=== PATIENT | male | born 1965 | race African-American/Black ===

== ENCOUNTER 2017-10-12 11:06 | Inpatient (IN) | payer OTHER ==
[~2017-10-12] VITALS: Ht 195.6 cm; Wt 89.2 kg
[~2017-10-12 11:06] MED LIST: ATRIPLA TABLET1 EACH PO; LYRICA300 MG PO; PRINIVIL5 MG PO
[2017-10-12 12:24] LABS: HEMATOCRIT 38.9 % (38.0-50.0); MCH 30.9 PG (29.0-34.0); MCV 88.4 FL (86-99); MEAN PLAT.VOLUME 10.8 uM^3 (9.0-12.4); PLATELET COUNT 330 K/uL (156-360); RBC DIS.WIDTH-CV 11.8 % (11.8-14.6); RBC DIS.WIDTH-SD 38.3 % (39-53); WHITE BLOOD COUNT 6.4 K/uL (4.1-10.2)
[2017-10-12 12:46] LABS: ANION GAP 9 MEQ/L (2-14); CHLORIDE 103 MEQ/L (99-109); SAMPLE HEMOLYSIS CHECK 0; SAMPLE ICTERIC CHECK 0; SAMPLE LIPEMIA CHECK 0; SODIUM 139 MEQ/L (136-147)
[2017-10-12 12:52] LABS: GFR ESTIMATE (CALCULATED) > 59 mL/min/ (58.99-99999); GLUCOSE 112 mg/dL (70-99); UREA NITROGEN (BUN) 8 mg/dL (9-23)
[2017-10-12 12:53] LABS: TROP-I INTERPRETATION NEGATIVE; TROPONIN-I 0.09 ng/mL (0.0-0.30)
[2017-10-12 13:52] LABS: D-DIMER ELISA < 150.00 ng/mLDDU (<230)
[2017-10-12 16:31] LABS: HDL CHOLESTEROL 70 MG/DL (Desirable>=40); LDL CHOLESTEROL 78 mg/dL (Desirable<100); NON-HDL CHOLESTEROL 91 mg/dL (Desirable<160); TOTAL CHOLESTEROL 161 mg/dL (Desirable<200); TRIGLYCERIDES 67 MG/DL (Normal: <150)
[2017-10-12 16:56] VITALS: BP 173/85
[2017-10-12 20:15] VITALS: BP 156/96
[2017-10-12 22:30] VITALS: BP 102/67
[2017-10-12] MEDS ORDERED: CHILDREN'S ASPI81 M1 PO (23:22)
[2017-10-12] MEDS ORDERED: PERCOCET 5/31 TABLET PO (23:23)
[2017-10-12] MEDS ORDERED: ESTRADIOL2 MG PO (23:25)
[2017-10-12] MEDS ORDERED: LISINOPRIL20 MG PO (23:26)
[2017-10-12] MEDS ORDERED: DEXILANT60 MG PO (23:26)
[2017-10-12] MEDS ORDERED: ATRIPLA TABLET1 EACH PO (23:27)
[2017-10-13 01:00] VITALS: BP 108/54
[2017-10-13 01:25] LABS: TROP-I INTERPRETATION NEGATIVE; TROPONIN-I 0.26 ng/mL (0.0-0.30)
[2017-10-13 04:35] VITALS: BP 122/61
[2017-10-13 06:31] LABS: TROP-I INTERPRETATION NEGATIVE
[2017-10-13 06:59] LABS: ANION GAP 9 MEQ/L (2-14); CHLORIDE 102 MEQ/L (99-109); GFR ESTIMATE (CALCULATED) > 59 mL/min/ (58.99-99999); GLUCOSE 111 mg/dL (70-99); SAMPLE HEMOLYSIS CHECK 0; SAMPLE ICTERIC CHECK 0; SAMPLE LIPEMIA CHECK 0; SODIUM 136 MEQ/L (136-147); UREA NITROGEN (BUN) 7 mg/dL (9-23)
[2017-10-13 08:10] VITALS: BP 118/68
== END 2017-10-13 09:25 | disposition home or self-care (01) | DRG 313 ==
LOC: EME 11:06 → EDOF 15:34 → ENRESERV 15:35 → 4EAST 16:27
PROVIDERS: Internal Medicine; Physician Assistant
DX: R07.89 Other chest pain (principal); I10 Essential (primary) hypertension; G43.A0 Cyclical vomiting, in migraine, not intractable; B20 Human immunodeficiency virus [HIV] disease; K21.9 Gastro-esophageal reflux disease without esophagitis; F12.10 Cannabis abuse, uncomplicated; F14.90 Cocaine use, unspecified, uncomplicated; F17.200 Nicotine dependence, unspecified, uncomplicated; Z82.49 Family history of ischemic heart disease and other diseases of the circulatory system
CPT/HCPCS: 71020; 80048; 80061; 84484; 85027; 85379; 93005; 99281; 99285; J0360; J1650; J2270; J2405; J7030

== ENCOUNTER 2018-05-26 12:50 | Emergency (ER) | payer OTHER ==
[~2018-05-26] VITALS: Ht 193 cm; Wt 88.1 kg
[~2018-05-26 12:50] MED LIST changes: +CHILDREN'S ASPI81 M1 PO; +DEXILANT60 MG PO; +ESTRADIOL2 MG PO; +LISINOPRIL20 MG PO; +PERCOCET 5/31 TABLET PO
[2018-05-26 13:37] LABS: HEMATOCRIT 36.1 % (38.0-50.0); HEMOGLOBIN 12.8 G/DL (12.5-16.6); MCH 30.7 PG (29.0-34.0); MCHC 35.5 G/DL (30.0-36.0); MCV 86.6 FL (86-99); PLATELET COUNT 211 K/uL (156-360); RBC DIS.WIDTH-CV 12.3 % (11.8-14.6); RBC DIS.WIDTH-SD 39.2 % (39-53); RED BLOOD COUNT 4.17 M/uL (4.00-5.50); WHITE BLOOD COUNT 5.6 K/uL (4.1-10.2)
[2018-05-26 13:46] LABS: CHLORIDE 105 mEq/L (99-109); POTASSIUM 4.4 mEq/L (3.7-5.4); SODIUM 139 mEq/L (136-147)
[2018-05-26 13:48] LABS: GLUCOSE 125 mg/dL (70-99)
[2018-05-26 13:52] LABS: CREATININE 0.9 mg/dL (0.6-1.3); GFR ESTIMATE (CALCULATED) > 59 mL/min/ (58.99-99999); UREA NITROGEN (BUN) 13 mg/dL (9-23)
[2018-05-26 13:54] LABS: LIPASE 53 U/L (1.0-51.0)
[2018-05-26 13:58] LABS: TROP-I INTERPRETATION NEGATIVE; TROPONIN-I < 0.01 ng/mL (0.0-0.30)
[2018-05-26] MEDS ORDERED: ZOFRAN ODT4 MG PO (14:49)
[2018-05-26] MEDS ORDERED: PERCOCET 5/31 TABLET PO (14:49)
[2018-05-26 15:42] VITALS: BP 156/78
[2018-05-27] MEDS ORDERED: OXYCODONE-APAP1 EACH PO (11:13)
[2018-05-27] MEDS ORDERED: ZOFRAN ODT4 MG PO (11:14)
[2018-05-27] MEDS ORDERED: FLEXERIL10 MG PO (11:15)
[2018-05-27] MEDS ORDERED: ZITHROMAX250 MG PO (11:16)
== END 2018-05-26 15:43 | disposition home or self-care (01) ==
LOC: EME 12:50
PROVIDERS: Emergency Medicine
DX: R07.9 Chest pain, unspecified (principal); M54.9 Dorsalgia, unspecified; R11.2 Nausea with vomiting, unspecified; I10 Essential (primary) hypertension; B20 Human immunodeficiency virus [HIV] disease; Z79.82 Long term (current) use of aspirin; F17.200 Nicotine dependence, unspecified, uncomplicated
CPT/HCPCS: 71045; 80048; 83690; 84484; 85027; 93005; 99281; 99284; J2765; J7030

== ENCOUNTER 2018-05-26 21:20 | Observation (INO) | payer OTHER ==
[~2018-05-26] VITALS: Ht 195.6 cm; Wt 94.0 kg
[~2018-05-26 21:20] MED LIST changes: +ZOFRAN ODT4 MG PO
[2018-05-26 23:26] LABS: MCH 30.9 PG (29.0-34.0); MCHC 36.1 G/DL (30.0-36.0); MCV 85.5 FL (86-99); RBC DIS.WIDTH-CV 12.3 % (11.8-14.6); RBC DIS.WIDTH-SD 38.5 % (39-53); RED BLOOD COUNT 4.21 M/uL (4.00-5.50); WHITE BLOOD COUNT 6.2 K/uL (4.1-10.2)
[2018-05-26 23:28] LABS: ALBUMIN 4.4 g/dL (3.2-4.8)
[2018-05-26 23:29] LABS: CHLORIDE 105 mEq/L (99-109); POTASSIUM 3.8 mEq/L (3.7-5.4); SODIUM 140 mEq/L (136-147)
[2018-05-26 23:31] LABS: GLUCOSE 120 mg/dL (70-99); TOTAL PROTEIN 7.9 g/dL (6.4-8.3)
[2018-05-26 23:32] LABS: CHLORIDE 104 mEq/L (99-109); POTASSIUM 3.8 mEq/L (3.7-5.4); SODIUM 140 mEq/L (136-147)
[2018-05-26 23:33] LABS: GLUCOSE 121 mg/dL (70-99); TOTAL BILIRUBIN 0.5 mg/dL (0.0-1.0)
[2018-05-26 23:34] LABS: ALKALINE PHOSPHATASE 61 IU/L (3-129)
[2018-05-26 23:35] LABS: CREATININE 0.8 mg/dL (0.6-1.3); GFR ESTIMATE (CALCULATED) > 59 mL/min/ (58.99-99999)
[2018-05-26 23:36] LABS: AST (GOT) 20 IU/L (2-34); UREA NITROGEN (BUN) 11 mg/dL (9-23)
[2018-05-26 23:37] LABS: CREATININE 0.8 mg/dL (0.6-1.3); GFR ESTIMATE (CALCULATED) > 59 mL/min/ (58.99-99999)
[2018-05-26 23:38] LABS: ALT (GPT) 20 IU/L (3-49); UREA NITROGEN (BUN) 10 mg/dL (9-23)
[2018-05-26 23:40] LABS: LIPASE 83 U/L (1.0-51.0)
[2018-05-26 23:42] LABS: TROP-I INTERPRETATION NEGATIVE; TROPONIN-I < 0.01 ng/mL (0.0-0.30)
[2018-05-27 03:35] LABS: PLAT.SUFFICIENCY ADEQUATE; PLATELET COUNT 212 K/uL (156-360)
[2018-05-27 07:50] VITALS: BP 176/92
[2018-05-27 08:44] LABS: TROP-I INTERPRETATION NEGATIVE; TROPONIN-I < 0.01 ng/mL (0.0-0.30)
[2018-05-27] MEDS ORDERED: OXYCODONE-APAP1 EACH PO (11:13)
[2018-05-27] MEDS ORDERED: ZOFRAN ODT4 MG PO (11:14)
[2018-05-27] MEDS ORDERED: FLEXERIL10 MG PO (11:15)
[2018-05-27] MEDS ORDERED: ZITHROMAX250 MG PO (11:16)
[2018-05-27 11:50] VITALS: BP 110/80
[2018-05-27 13:30] LABS: C DIFF TOXIN ND (NEGATIVE)
[2018-05-27 16:00] VITALS: BP 110/80
== END 2018-05-27 15:35 | disposition home or self-care (01) ==
LOC: EME 21:20 → EDOF 05-27 04:18 → 4SOUTH 05-27 04:18 → ENRESERV 05-27 04:20 → 4SOUTH 05-27 07:17
PROVIDERS: Hospitalist; Physician Assistant
DX: R10.13 Epigastric pain (principal); G43.A0 Cyclical vomiting, in migraine, not intractable; Z87.890 Personal history of sex reassignment; B20 Human immunodeficiency virus [HIV] disease; I10 Essential (primary) hypertension; K21.9 Gastro-esophageal reflux disease without esophagitis; F12.90 Cannabis use, unspecified, uncomplicated; F17.200 Nicotine dependence, unspecified, uncomplicated
CPT/HCPCS: 74176; 80048 91; 80053; 81003; 83690; 84484; 85027; 87493; 93005; 99281; 99285; G0378; J1170; J1200; J1644; J2405; J2765; J3010; J7030; S0028

== ENCOUNTER 2018-05-28 11:20 | Observation (INO) | payer OTHER ==
[~2018-05-28] VITALS: Ht 195.6 cm; Wt 96.5 kg
[~2018-05-28 11:20] MED LIST changes: +FLEXERIL10 MG PO; +OXYCODONE-APAP1 EACH PO; +ZITHROMAX250 MG PO
[2018-05-28 12:32] LABS: BASOPHIL (%) 0.6 % (0-1); EOSINOPHIL (%) 0.2 % (0-5); HEMATOCRIT 36.8 % (38.0-50.0); HEMOGLOBIN 12.9 G/DL (12.5-16.6); IMMATURE GRANULOCYTE (%) 0.2 % (0.0-0.7); LYMPHOCYTE (%) 18.8 % (15-42); MCH 30.3 PG (29.0-34.0); MCHC 35.1 G/DL (30.0-36.0); MCV 86.4 FL (86-99); MONOCYTE (%) 6.8 % (3-12); MONOCYTE COUNT 0.4 K/uL (0-0.8); NEUTROPHIL (%) 73.4 % (45-76); NEUTROPHIL COUNT 3.8 K/uL (1.8-6.4); PLATELET COUNT 227 K/uL (156-360); RBC DIS.WIDTH-CV 12.2 % (11.8-14.6); RBC DIS.WIDTH-SD 38.5 % (39-53); RED BLOOD COUNT 4.26 M/uL (4.00-5.50); WHITE BLOOD COUNT 5.1 K/uL (4.1-10.2)
[2018-05-28 12:42] LABS: ALBUMIN 4.1 g/dL (3.2-4.8)
[2018-05-28 12:43] LABS: CHLORIDE 106 mEq/L (99-109); POTASSIUM 3.5 mEq/L (3.7-5.4); SODIUM 139 mEq/L (136-147)
[2018-05-28 12:45] LABS: GLUCOSE 104 mg/dL (70-99); TOTAL PROTEIN 7.3 g/dL (6.4-8.3)
[2018-05-28 12:47] LABS: TOTAL BILIRUBIN 0.5 mg/dL (0.0-1.0)
[2018-05-28 12:48] LABS: ALKALINE PHOSPHATASE 55 IU/L (3-129)
[2018-05-28 12:49] LABS: GFR ESTIMATE (CALCULATED) > 59 mL/min/ (58.99-99999)
[2018-05-28 12:50] LABS: AST (GOT) 23 IU/L (2-34); UREA NITROGEN (BUN) 10 mg/dL (9-23)
[2018-05-28 12:51] LABS: ALT (GPT) 21 IU/L (3-49)
[2018-05-28 12:57] LABS: TROP-I INTERPRETATION NEGATIVE; TROPONIN-I < 0.01 ng/mL (0.0-0.30)
[2018-05-28 13:12] LABS: DIRECT BILIRUBIN 0.2 mg/dL (0.0-0.3)
[2018-05-28 20:03] LABS: MAGNESIUM 2.1 mg/dL (1.3-2.7)
[2018-05-28 20:49] VITALS: BP 200/93
[2018-05-28 21:37] VITALS: BP 172/88
[2018-05-29 04:37] VITALS: BP 176/89
[2018-05-29 05:49] LABS: BASOPHIL (%) 0.8 % (0-1); EOSINOPHIL (%) 0.6 % (0-5); HEMATOCRIT 37.1 % (38.0-50.0); IMMATURE GRANULOCYTE (%) 0.4 % (0.0-0.7); LYMPHOCYTE (%) 39.3 % (15-42); LYMPHOCYTE COUNT 2.1 K/uL (1.0-2.8); MCH 30.2 PG (29.0-34.0); MCV 86.1 FL (86-99); MONOCYTE (%) 13.4 % (3-12); MONOCYTE COUNT 0.7 K/uL (0-0.8); NEUTROPHIL (%) 45.5 % (45-76); NEUTROPHIL COUNT 2.4 K/uL (1.8-6.4); PLATELET COUNT 232 K/uL (156-360); RBC DIS.WIDTH-CV 11.9 % (11.8-14.6); RED BLOOD COUNT 4.31 M/uL (4.00-5.50); WHITE BLOOD COUNT 5.2 K/uL (4.1-10.2)
[2018-05-29 06:01] LABS: ALBUMIN 3.9 G/DL (3.2-4.8); ALKALINE PHOSPHATASE 48 IU/L (3-129); ALT (GPT) 16 IU/L (3-49); AST (GOT) 16 IU/L (2-34); CHLORIDE 104 MEQ/L (99-109); CREATININE 0.7 MG/DL (0.6-1.3); GFR ESTIMATE (CALCULATED) > 59 mL/min/ (58.99-99999); GLUCOSE 88 mg/dL (70-99); POTASSIUM 3.1 MEQ/L (3.7-5.4); SODIUM 137 MEQ/L (136-147); TOTAL BILIRUBIN 0.4 MG/DL (0.0-1.0); TOTAL PROTEIN 6.8 G/DL (6.4-8.3); UREA NITROGEN (BUN) 6 mg/dL (9-23)
[2018-05-29 07:35] VITALS: BP 190/81
[2018-05-29 11:59] VITALS: BP 125/69
[2018-05-29] MEDS ORDERED: LISINOPRIL40 MG PO (14:18)
[2018-05-29] MEDS ORDERED: K-DUR20 MEQ PO (14:18)
== END 2018-05-29 14:54 | disposition home or self-care (01) ==
LOC: EME 11:20 → EDOF 19:15 → ENRESERV 19:20 → 4SOUTH 20:37
PROVIDERS: Emergency Medicine; Physician Assistant
DX: G43.A0 Cyclical vomiting, in migraine, not intractable (principal); T40.7X5A Adverse effect of cannabis (derivatives), initial encounter; E87.6 Hypokalemia; I10 Essential (primary) hypertension; R10.13 Epigastric pain; B20 Human immunodeficiency virus [HIV] disease; Z87.890 Personal history of sex reassignment; F12.90 Cannabis use, unspecified, uncomplicated; Z79.82 Long term (current) use of aspirin; Z82.49 Family history of ischemic heart disease and other diseases of the circulatory system; Z80.42 Family history of malignant neoplasm of prostate
CPT/HCPCS: 71045; 80053; 82248; 83690; 83735; 84484; 85025; 93005; 99281; 99285; C9113; G0378; J0360; J1170; J1630; J2270; J2405; J2765; J3010; J3475; J7030; J7050